=== PATIENT | male | born 1970 ===

== ENCOUNTER 2021-02-03 12:02 | Outpatient (REF) | payer OTHER, SELFPAY ==
[2021-02-03 12:40] LABS: COVID-19 Test Negative (Negative)
== END 2021-02-03 12:03 | disposition home or self-care (01) ==
LOC: HO.LAB 12:02
PROVIDERS: Visit Provider Internal Medicine
DX: Z20.822 Contact with and (suspected) exposure to COVID-19 (principal)
CPT/HCPCS: 36415; 87635; C9803

== ENCOUNTER 2021-04-16 13:33 | Outpatient (REF) | payer OTHER, SELFPAY ==
[2021-04-16 14:22] LABS: COVID-19 Test Negative (Negative)
== END 2021-04-16 13:34 | disposition home or self-care (01) ==
LOC: HO.LAB 13:33
PROVIDERS: Visit Provider Internal Medicine
DX: Z20.822 Contact with and (suspected) exposure to COVID-19 (principal)
CPT/HCPCS: 87635; C9803